=== PATIENT | female | born 1965 | race Caucasian/White ===

== ENCOUNTER 2020-05-02 13:00 | Outpatient (RCR) | payer MEDICAID, SELFPAY ==
--- NOTE | 2020-03-19 14:00 | HP.PTEVAL_ITS ---
Patient's Visit Information CAMACHO GAMBOA is a 55 year old F referred to Physical Therapy by Dr. James Pabon DO with a diagnosis of CERVICAL RADICULOPATHY. Date of Evaluation: 03/19/20 Physical Therapist: Chapo Lu, PT, Cert MDT, OCS - Visit Plan Frequency: 2x /Week Duration: 4 Weeks Plan: PT INTERVENTIONS MANUAL THERPAY ,US/ESTIM/CP,CERVICAL /POSTURAL EX'S ,ICTX DARA - Subjective This 55 y/o feamle presenst to physical therapy with cervical radiculopathy. Patient has had cervical pain and shoulder pain. Patient had incedant in Apr 2019 putting up [employer] lighton back. Patient see DR kwong but wants to do MRI if PT doesnt get better. Patient has occassionally CASTELLANOS. Patient has parathesia in hands with [place] activities.Dr prescribed zaneflex. Aggraveting sleeping with arms OH,turning cervical,carrying something heavy,in PM. Allevaiting factors none. Patient sleeping good. Patient has no prior PT. Patient also c/o weakness in hands and arms. Patient symptoms affects QOL and function with job demnads. SOCAIL: . 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 PALAPTION: UT /levators. NEURO:c/o parathesia in hands ,reflexes C5-6-7 1/3. 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 AROM: BUE ROM WFL. CERVICAL ROM: flexion min loss,extension mod loss,rotation mod loss to right ,left min/mod loss. MMT: BUE 4/5,EXCEPT shoulders 3+/5 - Special Tests C/S Radiculapathy - Left Upper limb tension test: Negative C/S Radiculapathy - Right Upper limb tension test: Negative C/S Radiculapathy - Left Spurlings: Positive C/S Radiculapathy - Right Spurlings: Positive C/S Radiculapathy - Left Cervical distraction: Negative C/S Radiculapathy - Right Cervical distraction: Negative Sharp Maximus: Negative Vertebral Artery Test: Negative Alar Ligament Test: Negative Cervical Sitting: Protrusion - Mechanical Response: No effect Cervical Sitting: Protrusion - Symptoms During Testing: Abolishes Cervical Sitting: Protrusion - Symptoms After Testing: Worse Cervical Sitting: Retraction - Mechanical Response: No effect Cervical Sitting: Retraction - Symptoms During Testing: Increases Cervical Sitting: Retraction - Symptoms After Testing: Worse Cervical Sitting: Retraction-Extension - Mechanical Response: No effect Cerv Sitting: Retraction-Extension - Symptoms During Testing: Increases Cerv Sitting: Retraction-Extension - Symptoms After Testing: Worse Cervical Sitting: Sidebend Right - Mechanical Response: No effect Cervical Sitting: Sidebend Right - Symptoms After Testing: Worse Comments:: shoulder Cervical Sitting: Sidebend Left - Mechanical Response: No effect Cervical Sitting: Sidebend Left - Symptoms During Testing: Increases Cervical Sitting: Sidebend Left - Symptoms After Testing: No worse Cervical Sitting: Rotation Right - Mechanical Response: No effect Cervical Sitting: Rotation Right - Symptoms During Testing: Increases Cervical Sitting: Rotation Right - Symptoms After Testing: Worse Cervical Sitting: Rotation Left - Mechanical Response: No effect Cervical Sitting: Rotation Left - Symptoms During Testing: Abolishes Cervical Sitting: Rotation Left - Symptoms After Testing: No worse Cervical Sitting: Flexion - Mechanical Response: No effect Cervical Sitting: Flexion - Symptoms During Testing: Increases Cervical Sitting: Flexion - Symptoms After Testing: Worse - Goals Goal 1:: Patient to be I with HEP. Goal Time Frame: 4-6 Weeks Goal 2:: Improve posture for job demnads. Goal Time Frame: 4-6 Weeks Goal 3:: Patient cervical pain by 50 % or > to improve function Goal Time Frame: 4-6 Weeks Goal 4:: Patient to increase shoulder strength 4-/5 to improve function. 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 Goal Time Frame: 4-6 Weeks Goal 6:: Patient to increase back owestry score by 5 Points or> to improve QOL. Goal Time Frame: 4-6 Weeks - Rehabilitation Potential Physical Therapy Diagnosis: This patient has cervical pain with poor cervical ROM with pain ,weakness in shoulders ,thus benifit from skilled PT Rehabilitation Potential: Good - Anticipated Interventions Patient/Client Instruction: Educate patient on: Condition, Plan of Care For the Purpose of:: To decrease pain, To increase ROM, To improve muscle performance and motor function, To improve ability to perform ADL's, To increase tolerance to activity/condition/position, To improve ability of physical actions for home/community/work/leisure, To improve health of tissue, To decrease soft tissue restriction, To increase flexibility/ROM, To reduce risk of recurrence, To improve ability to perform tasks related to life management Therapeutic Exercise to Include: Strength training, Postural training, Flexibilty training, Active ROM Comment: CERVICAL For the Purpose of:: To decrease pain, To increase ROM, To improve muscle performance and motor function, To improve ability to perform ADL's, To increase tolerance to activity/condition/position, To improve ability of physical actions for home/community/work/leisure, To improve health of tissue, To decrease soft tissue restriction, To increase flexibility/ROM, To reduce risk of recurrence, To improve ability to perform tasks related to life management Manual Therapy Techniques to Include: Mobilization, Soft tissue mobilization Comment: MANUAL TRACTION For the Purpose of:: To decrease pain, To increase ROM, To improve nutrient delivery to tissue, To increase oxygenation perfusion, To improve health of tissue, To decrease soft tissue restriction TENS: Yes IF ES: Yes Cryotherapy (ice pack, ice massage): Yes Thermo therapy (hot pack): Yes Ultrasound (thermal/non thermal): Yes For the Purpose of:: To decrease pain, To decrease swelling/inflammation, To increase ROM, To improve nutrient delivery to tissue, To increase oxygenation perfusion, To improve health of tissue, To decrease soft tissue restriction Thank you for the opportunity to evaluate your patient. For Medicare and Medicare HMO plans, please review the plan of care and approve it. It will need to be FAXED BACK to us at [phone] for Medicare purposes. For Medicare only, by signing this I certify the plan of care. Please let me know if there are questions or concerns regarding this plan of care. Physician Signature: __Date:
--- NOTE | 2020-05-02 13:31 | HP.PTEVAL ---
Patient's Visit Information CAMACHO GAMBOA is a 55 year old F referred to Physical Therapy by Dr. James Pabon DO with a diagnosis of CERVICAL RADICULOPATHY. Date of Evaluation: 03/19/20 Physical Therapist: Chapo Lu PT, Cert MDT, OCS - Visit Plan Frequency: 2x /Week Duration: 4 Weeks Plan: D/C. RTD - Subjective This 55 y/o feamle presenst to physical therapy with cervical radiculopathy. Patient has had cervical pain and shoulder pain. Patient had incedant in Apr 2019 putting up [employer] lighton back. Patient see DR kwong but wants to do MRI if PT doesnt get better. Patient has occassionally CASTELLANOS. Patient has parathesia in hands with [place] activities.Dr prescribed zaneflex. Aggraveting sleeping with arms OH,turning cervical,carrying something heavy,in PM. Allevaiting factors none. Patient sleeping good. Patient has no prior PT. Patient also c/o weakness in hands and arms. Patient symptoms affects QOL and function with job demnads. SOCAIL: . 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 PALAPTION: UT /levators. NEURO:c/o parathesia in hands ,reflexes C5-6-7 1/3. 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 AROM: BUE ROM WFL. CERVICAL ROM: flexion min loss,extension mod loss,rotation mod loss to right ,left min/mod loss. MMT: BUE 4/5,EXCEPT shoulders 3+/5 - Special Tests C/S Radiculapathy - Left Upper limb tension test: Negative C/S Radiculapathy - Right Upper limb tension test: Negative C/S Radiculapathy - Left Spurlings: Positive C/S Radiculapathy - Right Spurlings: Positive C/S Radiculapathy - Left Cervical distraction: Negative C/S Radiculapathy - Right Cervical distraction: Negative Sharp Maximus: Negative Vertebral Artery Test: Negative Alar Ligament Test: Negative Cervical Sitting: Protrusion - Mechanical Response: No effect Cervical Sitting: Protrusion - Symptoms During Testing: Abolishes Cervical Sitting: Protrusion - Symptoms After Testing: Worse Cervical Sitting: Retraction - Mechanical Response: No effect Cervical Sitting: Retraction - Symptoms During Testing: Increases Cervical Sitting: Retraction - Symptoms After Testing: Worse Cervical Sitting: Retraction-Extension - Mechanical Response: No effect Cerv Sitting: Retraction-Extension - Symptoms During Testing: Increases Cerv Sitting: Retraction-Extension - Symptoms After Testing: Worse Cervical Sitting: Sidebend Right - Mechanical Response: No effect Cervical Sitting: Sidebend Right - Symptoms After Testing: Worse Comments:: shoulder Cervical Sitting: Sidebend Left - Mechanical Response: No effect Cervical Sitting: Sidebend Left - Symptoms During Testing: Increases Cervical Sitting: Sidebend Left - Symptoms After Testing: No worse Cervical Sitting: Rotation Right - Mechanical Response: No effect Cervical Sitting: Rotation Right - Symptoms During Testing: Increases Cervical Sitting: Rotation Right - Symptoms After Testing: Worse Cervical Sitting: Rotation Left - Mechanical Response: No effect Cervical Sitting: Rotation Left - Symptoms During Testing: Abolishes Cervical Sitting: Rotation Left - Symptoms After Testing: No worse Cervical Sitting: Flexion - Mechanical Response: No effect Cervical Sitting: Flexion - Symptoms During Testing: Increases Cervical Sitting: Flexion - Symptoms After Testing: Worse - Goals Goal 1:: Patient to be I with HEP. Goal Time Frame: 4-6 Weeks Goal 2:: Improve posture for job demnads. Goal Time Frame: 4-6 Weeks Goal 3:: Patient cervical pain by 50 % or > to improve function Goal Time Frame: 4-6 Weeks Goal 4:: Patient to increase shoulder strength 4-/5 to improve function. Goal Time Frame: 4-6 Weeks Goal 5:: Patient increase quality intern strengtrh y 5-10 # to function. Goal Time Frame: 4-6 Weeks Goal 6:: Patient to increase back owestry score by 5 Points or> to improve QOL. Goal Time Frame: 4-6 Weeks - Rehabilitation Potential Physical Therapy Diagnosis: This patient has cervical pain with poor cervical ROM with pain ,weakness in shoulders ,thus benifit from skilled PT Rehabilitation Potential: Good - Anticipated Interventions Patient/Client Instruction: Educate patient on: Condition, Plan of Care For the Purpose of:: To decrease pain, To increase ROM, To improve muscle performance and motor function, To improve ability to perform ADL's, To increase tolerance to activity/condition/position, To improve ability of physical actions for home/community/work/leisure, To improve health of tissue, To decrease soft tissue restriction, To increase flexibility/ROM, To reduce risk of recurrence, To improve ability to perform tasks related to life management Therapeutic Exercise to Include: Strength training, Postural training, Flexibilty training, Active ROM Comment: CERVICAL For the Purpose of:: To decrease pain, To increase ROM, To improve muscle performance and motor function, To improve ability to perform ADL's, To increase tolerance to activity/condition/position, To improve ability of physical actions for home/community/work/leisure, To improve health of tissue, To decrease soft tissue restriction, To increase flexibility/ROM, To reduce risk of recurrence, To improve ability to perform tasks related to life management Manual Therapy Techniques to Include: Mobilization, Soft tissue mobilization Comment: MANUAL TRACTION For the Purpose of:: To decrease pain, To increase ROM, To improve nutrient delivery to tissue, To increase oxygenation perfusion, To improve health of tissue, To decrease soft tissue restriction TENS: Yes IF ES: Yes Cryotherapy (ice pack, ice massage): Yes Thermo therapy (hot pack): Yes Ultrasound (thermal/non thermal): Yes For the Purpose of:: To decrease pain, To decrease swelling/inflammation, To increase ROM, To improve nutrient delivery to tissue, To increase oxygenation perfusion, To improve health of tissue, To decrease soft tissue restriction Thank you for the opportunity to evaluate your patient. For Medicare and Medicare HMO plans, please review the plan of care and approve it. It will need to be FAXED BACK to us at [phone] for Medicare purposes. For Medicare only, by signing this I certify the plan of care. Please let me know if there are questions or concerns regarding this plan of care. Physician Signature: Date:
--- NOTE | 2020-05-04 14:03 | HP.PTDCSUM_ITS ---
It has been my pleasure to treat CAMACHO GAMBOA referred by Dr. James Pabon DO, with the diagnosis of CERVICAL RADICULOPATHY for a total of 13 visit(s). Discharge Date: 05/02/20 Please see the following information for a summary of their discharge status. Subjective: Patient thinks PT has helped calvin ex's ,Patient conts to have tightness in ribs. Improvement with function Bilateral Neck Pain Intensity (Out of 10): 4 Bilateral Pain Intensity (Out of 10): 4 rib cage pain Pain Intensity (Out of 10): 0 % Improvement: 50 Objective/Function: POSTURE: mild foward head. AROM: cervical extension ,rotation/lateral flexion mod loss. MMT: BUE grossly 4/5,shoulders 4-/5. 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 Goal Progress: Goal Met Goal 2:: Improve posture for job demnads. Goal Progress: Progressing Goal 3:: Patient cervical pain by 50 % or > to improve function Goal Progress: Progressing Goal 4:: Patient to increase shoulder strength 4-/5 to improve function. 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 Goal Progress: Progressing Goal 6:: Patient to increase back owestry score by 5 Points or> to improve QOL. Goal Progress: Progressing Plan: D/C. RTD Discharge Comments: RTD If there are questions or concerns regarding this patient's physical therapy, please feel free to call me at [phone]. Thank you for the referral of this patient. Sincerely, Chapo Lu, PT, Cert MDT, OCS
== END 2020-05-02 19:00 | disposition home or self-care (01) ==
LOC: PT 13:00
PROVIDERS: PCP Family Medicine; Referring Provider Family Medicine; Visit Provider Family Medicine
DX: M54.12 Radiculopathy, cervical region (principal)
CPT/HCPCS: 97012; 97035; 97110; 97140; 97162; 97530